=== PATIENT | female | born 1995 | race Caucasian/White ===

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

== ENCOUNTER 2017-04-24 22:04 | Emergency (ER) | payer MEDICAID ==
[~2017-04-24] VITALS: Ht 154.9 cm; Wt 45.5 kg
[~2017-04-24 22:04] MED LIST: IBUP-1542 PO
[2017-04-24 22:17] VITALS: Ht 154.9 cm; Wt 45.5 kg
[2017-04-24] MEDS ORDERED: KETOROLAC 30 MG INJ IV STA (23:03)
[2017-04-24 23:16] LABS: URINE BLOOD (Dip) POC Trace-intact (NEGATIVE)
[2017-04-24 23:29] LABS: BASOPHIL # 0.1 10^3/ul (0.0-0.1); BASOPHILS % 0.8 % (0.0-2.0); EOSINOPHILS # 0.3 10^3/ul (0.0-0.5); EOSINOPHILS % 2.8 % (0.0-7.0); LYMPHOCYTES # 3.5 10^3/ul (0.8-2.9); LYMPHOCYTES % 34.9 % (18.0-55.0); MEAN CORPUSCULAR HEMOGLOBIN 30.2 pg (29.0-33.0); MEAN CORPUSCULAR HGB CONC 32.5 g/dl (32.0-37.0); MEAN CORPUSCULAR VOLUME 92.8 fl (72.0-104.0); MEAN PLATELET VOLUME 11.2 fl (7.4-10.4); MONOCYTE # 0.8 10^3/ul (0.3-0.9); MONOCYTES % 8.4 % (0.0-13.0); NEUTROPHILS % 52.8 % (30.0-74.0); PLATELET COUNT 231 10^3/UL (140-415); RED BLOOD COUNT 4.31 10^6/ul (4.20-5.40); RED CELL DISTRIBUTION WIDTH 12.2 % (11.5-14.5); WHITE BLOOD COUNT 9.9 10^3/ul (4.8-10.8)
[2017-04-24] MEDS ORDERED: DIPHENHYDRAMINE 50 MG INJ IV ONE (23:30)
[2017-04-24] MEDS ORDERED: SOD CHLORIDE 0.9% 1,000 ML IV ONE (23:30)
[2017-04-24] MEDS ORDERED: METOCLOPRAMIDE 10 MG INJ IV ONE (23:30)
[2017-04-24] MEDS ORDERED: NAPR-260 PO (23:31)
[2017-04-24 23:47] LABS: CREATININE 0.81 mg/dl (0.44-1.00)
--- NOTE | 2017-04-24 23:58 | ERD ---
ER Documentation Chief Complaint Date/Time DATE: 04/24/17 TIME: 23:56 Chief Complaint headache x 2 weeks tingling on half side of face today HPI This is a 21-year-old female presents here with a headache for the last 2 weeks. Headache is located on the right side of her head and is throbbing in quality. Patient has been taking Tylenol for the headache however the headache always returns. Patient denies any photophobia, loss of vision, vision changes. She denies any head trauma. She does have some nausea however denies vomiting. Patient is also complaining of tingling to the right side of her face. She denies any upper or lower extremity weaknesses. She denies any fevers or chills. Patient denies any neck pain or neck stiffness. ROS 12 point review of systems was done, all negative except per HPI. 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 HEENT: Atraumatic. Conjunctivae are pink. Pupils equal, round, and reactive to light. Extraocular muscles are grossly intact. Bilateral tympanic membranes are clear with no evidence of erythema, bulging or perforation. No sinus tenderness. NECK: C-spine is soft and supple. There is no cervical lymphadenopathy. CHEST: Clear to auscultation bilaterally. There are no rales, wheezes or rhonchi. HEART: Regular rate and rhythm. No murmurs, clicks, rubs or gallops. EXTREMITIES: Equal pulses bilaterally. There is no peripheral clubbing, cyanosis or edema. No focal swelling or erythema. Full range of motion. Grossly neurovascularly intact. NEURO: Alert and oriented. Cranial nerves II through XII are intact. Motor strength in all 4 extremities with 5/5 strength. Sensation grossly intact. Normal speech and gait. Negative Rhomberg. +2 DTRs. SKIN: There is no apparent rash or petechia. The skin is warm and dry. Result Diagram: 04/24/178 04/24/178 Results 24 hrs Laboratory Tests Test 04/24/17 23:18 04/24/17 23:22 White Blood Count 9.910^3/ul Red Blood Count 4.3110^6/ul Hemoglobin 13.0g/dl Hematocrit 40.0% Mean Corpuscular Volume 92.8fl Mean Corpuscular Hemoglobin 30.2pg Mean Corpuscular Hemoglobin Concent 32.5g/dl Red Cell Distribution Width 12.2% Platelet Count 71702^3/UL Mean Platelet Volume 11.2fl Neutrophils % 52.8% Lymphocytes % 34.9% Monocytes % 8.4% Eosinophils % 2.8% Basophils % 0.8% Nucleated Red Blood Cells % 0.0/100WBC Neutrophils # (Manual) 510^3/ul Lymphocytes # 3.510^3/ul Monocytes # 0.810^3/ul Eosinophils # 0.310^3/ul Basophils # 0.110^3/ul Nucleated Red Blood Cells # 0.010^3/ul Sodium Level 141mmol/L Potassium Level Pending Chloride Level 98mmol/L Carbon Dioxide Level 28mmol/L Anion Gap Pending Blood Urea Nitrogen 17mg/dl Creatinine 0.81mg/dl Glucose Level 81mg/dl Calcium Level Pending Bedside Urine pH (LAB) 6.5 Bedside Urine Protein (LAB) Trace Bedside Urine Glucose (UA) Negative Bedside Urine Ketones (LAB) Negative Bedside Urine Blood Trace-intact Bedside Urine Nitrite (LAB) Negative Bedside Urine Leukocyte Esterase (L Negative Current Medications Medications (Trade) Dose Ordered Sig/Samy Route PRN Reason Start Time Stop Time Status Last Admin Dose Admin Sodium Chloride (NS) 1,000 ml @ 1,000 mls/hr Q1H ONCE IV 04/24/17 23:30 04/25/17 00:29 04/24/17 23:17 Ketorolac Tromethamine (Toradol) 30 mg ONCE STAT IV 04/24/17 23:03 04/24/17 23:06 DC 04/24/17 23:31 Metoclopramide HCl (Reglan) 10 mg ONCE ONCE IV 04/24/17 23:30 04/24/17 23:31 DC 04/24/17 23:17 Diphenhydramine HCl (Benadryl) 25 mg ONCE ONCE IV 04/24/17 23:30 04/24/17 23:31 DC 04/24/17 23:17 Procedures/MDM Differential Diagnosis includes but is not limited to; tension headache, migraine headache, cluster headache, sinus headache, nonspecific febrile headache, trigeminal neurologia, subdural hematoma, subarachnoid bleeding, meningitis, encephalitis. Patient is neurologically intact with no focal neurological deficits. At this time etiology of patient's headache is unknown, however suspicion for intracranial emergency is low. Patient's headache was completely resolved in the ER with migraine cocktail. There is no evidence of significant leukocytosis or electrolyte abnormality. No evidence of urinary tract infection. Patient will be sent home with naproxen she is to follow-up with her primary care doctor within 1-2 days return to ER sooner if symptoms worsen. My medical decision making shared with the patient she understands and agrees with plan. Departure Diagnosis: Primary Impression: Acute headache Condition: Stable Patient Instructions: Headache, Unspecified Additional Instructions: Call your primary care doctor TOMORROW for an appointment during the next 1-2 days.See the doctor sooner or return here if your condition worsens before your appointment time. JAMEEL HERRERA Apr 24, 2017 23:58
[2017-04-24 23:59] LABS: CALCIUM 9.6 mg/dl (8.4-10.2); POTASSIUM 3.9 mmol/L (3.5-5.1)
== END 2017-04-25 00:03 | disposition home or self-care (01) ==
LOC: FTE 22:04
DX: R51 Headache (principal)
CPT/HCPCS: 80048; 81003; 85025; 96374; 96375; J1200; J1885; J2765; J7030; Z7502

== ENCOUNTER 2017-07-19 09:58 | Emergency (ER) | payer MEDICAID ==
[~2017-07-19] VITALS: Ht 157.5 cm; Wt 45.3 kg
[~2017-07-19 09:58] MED LIST changes: +NAPR-260 PO
[2017-07-19 10:03] VITALS: Ht 157.5 cm; Wt 45.3 kg
[2017-07-19] MEDS ORDERED: ACYC400T2 PO (11:09)
[2017-07-19] MEDS ORDERED: SUMA25TA34 PO (11:09)
[2017-07-19] MEDS ORDERED: IBUP400T22 PO (11:09)
--- NOTE | 2017-07-19 11:12 | ERD ---
ER Documentation Chief Complaint Chief Complaint Complains of mouth sores or possible allergic reaction since last night HPI This 21-year-old female presents with complaints. She has had a sore in the right upper lip for the last 2 days. Denies any previous history of same. She has a known contacts with similar complaints. She denies any fevers, vomiting, shortness breath or chest pain. Patient has additional complaint of recurrent headaches over the last 2 years. Her primary right-sided behind her eye associated nausea, photophobia and tearing. She has a history of migraines in her family. She denies any current symptoms. She denies any neck stiffness, weakness, deficits. ROS All systems reviewed and are negative except as per history of present illness. Medications Home Meds Active Scripts Ibuprofen* (Motrin*) 400 Mg Tab, 400 MG PO Q6H Y for PAIN, #15 TAB Prov:ROSY ESCOBAR MD 07/19/17 Acyclovir* (Acyclovir*) 400 Mg Tablet, 400 MG PO TID for 3 Days, TAB Prov:ROSY ESCOBAR MD 07/19/17 Sumatriptan Succinate* (Imitrex*) 25 Mg Tablet, 25 MG PO BID Y for MIGRAINE HEADACHE, #8 TAB May repeat after 2 hours if needed; MAX 200 mg/24 hours Prov:ROSY ESCOBAR MD 07/19/17 Naproxen* (Naprosyn*) 500 Mg Tablet, 500 MG PO BID Y for PAIN AND/OR INFLAMMATION, #30 TAB Prov:JAMEEL HERRERA 04/24/17 Ibuprofen* (Motrin*) 600 Mg Tab, 600 MG PO Q8, #30 TAB Prov:MOON CLIFTON 12/08/16 Reported Medications [none] Unknown Strength No Conflict Check 06/04/16 Allergies Allergies: Coded Allergies: No Known Allergy (Unverified , 06/04/16) PMhx/Soc 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 Head: Atraumatic Eyes: Normal Conjunctiva ENT: Normal External Ears, Nose and Mouth. Small vesicular lesions in the right upper outer lip. No erythema. Airway patent. Uvula midline. Neck: Full range of motion..~ No meningismus. Resp: Clear to auscultation bilaterally Cardio: Regular rate and rhythm, no murmurs Abd: Soft, non tender, non distended. Normal bowel sounds Skin: No petechiae or rashes Back: No midline or flank tenderness Ext: No cyanosis, or edema Neur: Awake and alert Psych: Normal Mood and Affect Procedures/MDM Patient has signs and symptoms of likely herpetic lesions in the right upper lip. Appears to be very early. She was given a short course of acyclovir and ibuprofen. Patient additionally complains of headaches suggestive of classic migraines. She will be initiated on a short trial of Imitrex and primary care follow-up and return precautions. Current signs and symptoms do not suggest meningitis, neurologic deficits, central nervous lesion, additional emergent causes of presenting complaints.. Patient currently has no headache. The patient was stable with no new complaints during the ER course. Clinically, there is no current evidence to suggest meningitis, sepsis, acute abdomen, pneumonia, acute coronary syndrome, pulmonary embolism, or any other emergent condition appearing to require further evaluation or hospitalization. The patient should certainly return for any new or worsening symptoms per the aftercare instructions. They should otherwise follow-up with her primary care doctor for reevaluation this week. Departure Diagnosis: Primary Impression: Headache Headache type: unspecified Headache chronicity pattern: unspecified pattern Intractability: not intractable Qualified Code: R51 - Nonintractable headache, unspecified chronicity pattern, unspecified headache type Additional Impression: Sore in mouth Condition: Stable Patient Instructions: Headache, Migraine (Classical), Herpes Labialis, Hsv: Type I Additional Instructions: See primary doctor for follow-up. Recheck otherwise for new or worsening symptoms. Headache suggestive of migraines. Sore on lip may last a week or longer. ROSY ESCOBAR MD Jul 19, 2017 11:12
== END 2017-07-19 11:33 | disposition home or self-care (01) ==
LOC: FTE 09:58
DX: K13.79 Other lesions of oral mucosa (principal); R51 Headache
CPT/HCPCS: 99284

== ENCOUNTER 2017-10-18 09:50 | Emergency (ER) | END 2017-10-18 13:31 | disposition home or self-care (01) ==

== ENCOUNTER 2017-10-22 23:03 | Emergency (ER) | END 2017-10-23 02:32 | disposition home or self-care (01) ==

== ENCOUNTER 2017-12-31 02:10 | Emergency (ER) | END 2017-12-31 07:49 | disposition home or self-care (01) ==